=== PATIENT | male | born 1960 | race Caucasian/White ===

== ENCOUNTER 2020-02-17 10:03 | Emergency (ER) | payer MEDICAID ==
[~2020-02-17] VITALS: Ht 188 cm; Wt 77.9 kg
--- NOTE | 2020-02-17 10:38 | NUR ---
Pt normally drinks 1 6 pack of beer per day. Last drink was 4 days ago. No complaints at this time.
[2020-02-17 11:14] VITALS: BP 148/88
== END 2020-02-17 11:13 | disposition home or self-care (01) ==
LOC: ER 10:04
DX: F10.20 Alcohol dependence, uncomplicated (principal); Z88.2 Allergy status to sulfonamides; Y90.9 Presence of alcohol in blood, level not specified
CPT/HCPCS: 99281